=== PATIENT | female | born 1970 | race Caucasian/White ===

== ENCOUNTER 2025-04-04 11:57 | Emergency (ER) | payer MEDICAID ==
[~2025-04-04] VITALS: Ht 152.4 cm; Wt 70.0 kg
[2025-04-04 12:04] VITALS: TEMP 37.1; O2SAT 98
[2025-04-04] MEDS ORDERED: CEPH500C2 MT (15:20)
[2025-04-04] MEDS ORDERED: BO1 TP (15:20)
[2025-04-04 15:53] VITALS: BP 106/68; PULSE 67; RESP 16; O2SAT 98
== END 2025-04-04 15:54 | disposition home or self-care (01) ==
LOC: ER 13:44
DX: L02.212 Cutaneous abscess of back [any part, except buttock and flank] (principal); Z90.710 Acquired absence of both cervix and uterus
CPT/HCPCS: 10060; 99282; 99283